=== PATIENT | female | born 1985 | race Caucasian/White ===

== ENCOUNTER 2018-06-11 13:26 | Emergency (ER) | payer OTHER ==
[~2018-06-11] VITALS: Ht 162.6 cm; Wt 68.0 kg
[~2018-06-11 13:26] MED LIST: IBUPROFEN 200200 M1 PO; NEURONTIN 300300 M1 PO; RELAFEN PO; ZANAFLEX4 MG PO; ZOLOFT50 MG PO
[2018-06-11] MEDS ORDERED: NAPROSYN500 MG PO (14:35)
[2018-06-11 14:53] VITALS: BP 140/47
== END 2018-06-11 14:54 | disposition home or self-care (01) ==
LOC: M.ERS 13:26
DX: S46.211A Strain of muscle, fascia and tendon of other parts of biceps, right arm, initial encounter (principal); W00.0XXA Fall on same level due to ice and snow, initial encounter; Y93.01 Activity, walking, marching and hiking; Y92.89 Other specified places as the place of occurrence of the external cause; Y99.8 Other external cause status